=== PATIENT | female | born 2000 | race African-American/Black ===

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

== ENCOUNTER 2019-02-26 20:34 | Emergency (ER) | payer SELFPAY ==
[2019-02-26 20:34] VITALS: BP 103/69; PULSE 70; RESP 16; TEMP 36.9; O2SAT 100; BMI 17.5; BMI 21.7
--- NOTE | 2019-02-26 20:46 | RAD_ITS ---
STUDY: X-RAY - THORACIC SPINE REASON FOR EXAM: Female, 18 years old. Fall TECHNIQUE: 3 view(s) of the thoracic spine were obtained. COMPARISON: None. FINDINGS: Normal kyphosis of the thoracic spine. There is no substantial scoliosis. Normal thoracic vertebrae and endplates. Normal disc space heights. The soft tissue structures are unremarkable. RAD/Thoracic Spine 3 Views IMPRESSION: Normal x-ray examination of the thoracic spine. Electronically Signed: Zaire Quiroz DO at 21:29 EDT Tel [phone], Service support ,
--- NOTE | 2019-02-26 20:47 | ED.VIS.GEN ---
History of Present Illness Chief Complaint: Back Informant: Patient Onset: Yesterday Context: Sudden Onset Timing: Continuous Quality: Pain Location: Lower lumbar central Current Severity: Mild Maximum Severity: Moderate Worsened by: Movement or palpation Relieved by: nothing Associated Symptoms: No associated symptoms Narrative: Patient is a 18-year-old male who states he was dancing the garage. Fell. Door fell on him. Edge hit central portion of his back. He has area of swelling and complains of pain with movement of any type. He denies paresthesia, anesthesia motors lower extremity. He denies bowel bladder dysfunction. He denies saddle paresthesia or anesthesia. He denies quadricep weakness going up or down steps. He denies foot drop. He is on no medication. He has no allergies. He states he has not done anything for the pain. - Past Medical History (1) No significant past medical history Status: Acute Past Medical History - Allergies and Home Meds Allergies/Adverse Reactions: Allergies milk Allergy (Verified 02/26/19 20:35) Hives Primary Care Physician: Sj Mascorro MD [Primary Care Provider] - Past Medical History: None Surgical History: no surgical history Lives: With Family Smoking Status: Current every day smoker Alcohol: None Review of Systems General: Denies: Chills, Fever, Malaise, Sweats Gastrointestinal: Denies: Nausea, Vomiting Genitourinary: Denies: Dysuria, Hematuria, Frequency Musculoskeletal: Reports: Back pain. Denies: Myalgias, Arthralgias, Neck pain, Swelling, Extremity Pain, -, - Skin: Reports: Abrasions. Denies: Rash, Abscess, Wounds Neurological: Denies: Weakness, Parasthesia, Numbness Hematologic: Denies: Easy bruising, Easy bleeding Physical Exam Vital Signs/Narrative: Vital Signs Temp Pulse Resp BP Pulse Ox 02/26/19 20:34 98.5 F 70 16 103/69 100 Inital Vital Signs reviewed: Yes General: Well nourished, Well developed, No Acute Distress Head: Normocephalic, Atraumatic Eyes: Perrl, EOMI Abdomen: Soft, Nontender, Nondistended, Normal bowel sounds Back: Spinal tenderness - There is pain to palpation centrally over the spinous process of T10/T11. There is evidence of trauma.. Negative for: Nontender, Normal Inspection, CVA tenderness Extremities: Nontender, No edema Skin: Normal color, No rash, Trauma Neurological: Alert, Oriented x3, Cranial nerves II-XII grossly intact, Normal Strength, Normal Sensation, Normal DTR, Normal Gait Psychological: Normal affect, Normal Mood Diagnostic/Tx/Re-eval Chest X-Ray - ED: 2 View, Read by ED Physician 2 view x-ray of the dorsal spine reveals no evidence of fracture. - Medical Decision Making Since there is point tenderness x-ray was obtained to evaluate for spinous process fracture. Differential is contusion versus fracture. Symptomatic treatment rest, ice and anti-inflammatory since there is no contraindication ED Disposition - Plan for ED Patient: Disposition: Home or Assisted Living Diagnosis: Contusion of left back wall of thorax, initial encounter Instructions: ED Contusion Back Referrals: Sj Mascorro MD [Primary Care Provider] - 10-14 Days if not better Additional Instructions: Apply ice 20-30 minutes per application 6-8 times a day. Take 3 Advil every 6-8 hours for pain for the next 3-5 days.
[2019-02-26 20:48] VITALS: RESP 16
[2019-02-26 21:33] VITALS: RESP 16
== END 2019-02-26 21:33 | disposition home or self-care (01) ==
PROVIDERS: Emergency Provider Emergency Medicine; Family Provider Pediatrics; PCP Pediatrics
DX: S20.222A Contusion of left back wall of thorax, initial encounter (principal); W20.8XXA Other cause of strike by thrown, projected or falling object, initial encounter; Y93.9 Activity, unspecified; Y92.59 Other trade areas as the place of occurrence of the external cause; Y99.9 Unspecified external cause status; F17.200 Nicotine dependence, unspecified, uncomplicated
CPT/HCPCS: 72072; 99282

== ENCOUNTER 2019-03-08 17:28 | Emergency (ER) | payer SELFPAY ==
[2019-02-26 20:34] VITALS: BMI 21.7
[2019-03-08 17:30] VITALS: BP 109/63; PULSE 80; RESP 16; TEMP 36.3; O2SAT 98; BMI 19.8
--- NOTE | 2019-03-08 17:54 | RAD_ITS ---
STUDY: X-RAY - RIGHT HAND REASON FOR EXAM: Female, 18 years old. Trauma TECHNIQUE: 3 view(s) of the hand. COMPARISON: None. FINDINGS: There is no evidence of fracture or dislocation. There are no significant degenerative changes. There are no radiodense foreign bodies. RAD/Hand Min 3 Views IMPRESSION: No fracture or dislocation. Electronically Signed: Sy Hernandez, at 18:12 EDT Tel , Service support ,
--- NOTE | 2019-03-08 17:57 | ED.DCSUM_ITS ---
- ER Visit Summary Date of Service: 03/08/19 Chief Complaint: Right hand injury History of Present Illness: The patient is a 18 F who presents with right hand injury that occurred last night. Patient states she punched a refrigerator last night because someone made her angry. Patient states the pain and swelling over the right third MCP joint has gotten worse today. Patient states the pain is worse with movement. Patient denies any paresthesias or weakness. Patient denies any other injuries. Physical Examination: Vital signs are stable. Patient is afebrile. Patient has no acute distress. Oral mucosa is pink and moist. Neck is supple. Trachea is midline. There is no JVD noted. Musculoskeletal exam reveals tenderness over the right third MCP joint. There is a small superficial abrasion noted. There is no active bleeding noted. There is no bony crepitance or step-off noted. There is no deformity noted. Range of motion of the right third MCP joint was limited secondary to pain. Sensation was intact to light touch in all digits. Capillary refill was less than 2 seconds in all digits. Test Results: X-rays of the right hand were obtained. There is no acute fracture. This was interpreted by the radiologist and reviewed by myself. Emergency Department Course and Treatment: The patient was given an ice pack. Patient was informed of her x-ray results. Patient was instructed to ice and e levate the right hand. Patient was instructed to follow-up with her primary care physician in 5 to 7 days. Patient was instructed to take Tylenol or ibuprofen as needed for pain. Patient understood and was agreeable with the plan. All questions were answered. Disposition: Discharge home Impression: Right hand contusion This note was generated with [employer] dictation software. It may contain incorrect words, spelling, and punctuation that were not noted in review of the chart prior to signing ED Disposition - Plan for ED Patient: Disposition: Home or Assisted Living Diagnosis: Contusion of right hand, initial encounter Instructions: ED Contusion Upper Ext Referrals: Sj Mascorro MD [STAFF PHYSICIAN] - 5-7 Days
== END 2019-03-08 19:54 | disposition home or self-care (01) ==
PROVIDERS: Emergency Provider Emergency Medicine
DX: S60.221A Contusion of right hand, initial encounter (principal); W22.8XXA Striking against or struck by other objects, initial encounter; Y93.9 Activity, unspecified; Y92.89 Other specified places as the place of occurrence of the external cause; Y99.9 Unspecified external cause status
CPT/HCPCS: 73130; 99282

== ENCOUNTER 2019-07-25 15:35 | Emergency (ER) | payer SELFPAY ==
[2019-07-25 15:37] VITALS: BP 113/79; PULSE 77; RESP 18; TEMP 36.7; O2SAT 100; BMI 21.2
--- NOTE | 2019-07-25 16:00 | ED.DCSUM_ITS ---
- ER Visit Summary Date of Service: 07/25/19 Chief Complaint: Possible overdose History of Present Illness: The patient is a 18 F who overdosed on some medications today. She took 5 tablets of Advil PM and 2 tablets of Xanax. She states that she is stressed out and trying to sleep. Her and her partner are homeless and this caused a stressful home situation. She states she has not slept in a few days. She denies this being an attempt to hurt herself. She does feel a bit drowsy. She denies nausea or vomiting. She denies any other symptoms. Physical Examination: Vital signs reviewed. HEENT exam unremarkable. Heart is regular rate and rhythm without murmurs. Lungs are clear to auscultation. Abdomen is soft and nontender. Extremities reveal no edema. Skin exam normal. Neurologic exam normal. Test Results: Laboratory studies unremarkable except for a creatinine 1.33 Emergency Department Course and Treatment: The patient was unable to give a urine specimen. While waiting for this, the patient's mother came to the emergency department. The patient did not want her here. There was an argument that ensued and the patient eloped from the emergency department Treatment Plan: [] Disposition: Elopement Impression: Medication overdose This note was generated with [employer] dictation software. It may contain incorrect words, spelling, and punctuation that were not noted in review of the chart prior to signing ED Disposition - Plan for ED Patient: Disposition: Against Medical Advice Referrals: Care Physician,No Primary [Primary Care Provider] -
[2019-07-25 16:29] LABS: Absolute Lymphocyte Count 1.35 X10^3/uL (0.83-4.51); Absolute Neutrophil Count 2.1 X10^3/uL (2.0-7.7); Basophil# 0.04 X10^3/uL; Eosinophil# 0.26 X10^3/uL; Eosinophils% 6.3 % (0-5); Hematocrit 40.6 % (37-47); Hemoglobin 14.2 g/dL (12.0-15.0); Lymphocyte # 1.35 X10^3/ul (4.0); Lymphocyte % 32.8 % (19-41); Mean Corpuscular Hgb 32.6 pg (27.0-32.0); Mean Corpuscular Volume 93.1 fL (81-99); Mean Platelet Vol. 9.9 fl (6.2-12.0); Monocyte# 0.36 X10^3/uL; Monocyte% 8.7 % (0-10); NRBC Flagged by Analyzer 0 % (0-5); Platelet Count 196 K/mm3 (150-450); RBC Distribution Width CV 11.3 % (11.6-14.6); RBC Distribution Width SD 38.9 fl (35.1-43.9); Red Blood Count 4.36 M/mm3 (4.2-5.4); White Blood Count 4.1 K/mm3 (4.4-11.0)
--- NOTE | 2019-07-25 16:40 | CM.ED ---
SOCIAL WORK ASSESSMENT INFORMANT: DR. HAN REASON FOR REFERRAL: MENTAL HEALTH-POSSIBLE OVERDOSE LIVING SITUATION: PATIENT STATES LIVING WITH GIRLFRIEND. SUPPORTS: GIRLFRIEND, MARCELA ROMEO. PATIENT STATES FAMILY HAS NOT BEEN SUPPORTIVE SINCE COMING HOME FROM [place] AFTER RECEIVING A FULL RIDE SCHOLARSHIP FOR BASKETBALL. 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 PATIENT REPORTS NOT CURRENTLY WORKING. INSURANCE: SELF PAY. PATIENT GIVEN INFORMATION ON MEDICAID. PATIENT GOING TO FOLLOW UP TOMORROW WITH [facility] [place] TO GET BACK ON MEDICAID. NUMBER PROVIDED. PCP: PATIENT CURRENTLY DOES NOT HAVE A PRIMARY CARE PHYSICIAN. INFORMATION GIVEN ON FREE CLINIC. LIST OF PRIMARY CARE PHYSICIANS GIVEN FOR ONCE MEDICAID APPROVED. MENTAL HEALTH HX: PATIENT ADMITS TO HX OF DEPRESSION. PATIENT ALSO REPORTS HAS ANGER ISSUES, I GET MAD AND I DON'T KNOW WHY. PATIENT STATES IS NOT PRESCRIBED MEDICATION AND THE XANAX THAT SHE TOOK THIS DAY WAS BOUGHT OFF THE STREET. SUBSTANCE ABUSE HX: PATIENT REPORTS IS A DAILY DRINKER. PATIENT STATES ANYWHERE FROM 6-7 BEERS/DAY. PATIENT ADMITS TO MARIJUANA USE. ASSESSMENT: MET WITH PATIENT IN ROOM. GIRLFRIEND PRESENT AND PATIENT GAVE PERMISSION FOR THIS WORKER TO SPEAK OPENLY WITH GIRLFRIEND PRESENT. INTRODUCED THIS WORKER'S ROLE AND REASON FOR REFERRAL. PATIENT STATES TOOK 5 ADVIL PM'S AND 2 XANAX TO GET SOME SLEEP. PATIENT STATES MANY SOCIAL STRESSORS AND HAS BEEN HAVING A HARD TIME SLEEPING. PATIENT DENIES ANY SUICIDAL OR HOMICIDAL IDEATION. PATIENT REPORTS DOES NOT CURRENTLY FOLLOW WITH ANY COUNSELING AGENCIES AND FEELS WOULD BENEFIT FROM ESTABLISHING WITH ONE. PATIENT ADMITS TO SUBSTANCE ABUSE, ALCOHOL AND MARIJUANA. DISCUSSED SETTING UP CRISIS FOLLOW UP APPOINTMENT FROM ED VISIT. PATIENT IN AGREEMENT WITH PLAN. DISCUSSED APPLYING FOR MEDICAID AND PATIENT PROVIDED WITH NUMBER AND ENCOURAGED TO CALL TOMORROW. CALL TO THE COUNSELING CENTER AND SET UP APPOINTMENT FOR TOMORROW FOR 1P WITH [facility]. PATIENT UPDATED. PLAN: HOME WITH FOLLOW UP WITH THE COUNSELING CENTER TOMORROW, 07/26/19. JACQUES GRAVES, ASSISTANT CHIEF OF POLICE, [employer]
[2019-07-25 16:42] LABS: Anion Gap 5 (5-15); BUN 18 mg/dL (7-18); BUN/Creat Ratio 13.5 RATIO (10-20); Calcium,Total 9.4 mg/dL (8.5-10.1); Chloride 108 mmol/L (98-107); Creatinine, Serum 1.33 mg/dL (0.55-1.02); EST Glomerular Filtration Rate 54 mL/min (>60); Est Glom Filt Rate - Afr Amer 65 mL/min (>60); Glucose 77 mg/dL (74-106); Potassium 3.8 mmol/L (3.5-5.1); Sodium Level 138 mmol/L (136-145)
[2019-07-25 17:05] LABS: Internal QC Validated? YES +Cl - CLEAR BKGD; Pregnancy, Serum, hCG Quali. NEGATIVE Negative
--- NOTE | 2019-07-25 17:29 | ED.RN ---
pt mom at bedside. pt mother upset and pt removing hall monitor. girlfriend removed from the room. pt mom arguing, shut the door on this rn and saying this conversation is done. Pt mother wants to know what is happening with the patient. RN asked permission from pt to discuss why the patient came in. pt said yes. Mom vocalizing anger the rn asked pt permission with the mom being the mom and racism is occurring. Rn explained patient took more medication than needed and was here being monitored. Mom response was what am I here for? I birthed her. She is my child. Pt wanting to leave and mom wanting her to leave. Rn discussed with patient that she would go talk to physician and have her sign AMA paperwork at this time. Mom calmed down and waited for the provider to get AMA paperwork. pt left AMA at this time [id number]
[2019-07-25 17:40] LABS: Acetaminophen (Tylenol) Level < 2.0 ug/mL (10.0-30.0); Salicylate 2.6 mg/dL (2.8-20.0)
--- NOTE | 2019-07-25 18:38 | ED.RN ---
NOTE DOCUMENTED BY JOHN GALLEGOS WAS ENTERED INCORRECTLY. LIZZIE SOLORZANO RN WROTE THE NOTE AND HAD THE ENCOUNTER WITH THE PATIENT AND THE MOTHER.
--- NOTE | 2019-07-25 18:39 | ED.RN ---
1700 PT REFUSED TO BE STRAIGHT CATH FOR URINE AND UNABLE TO VOID IN CUPX2 TIMES.
== END 2019-07-25 17:33 | disposition left against medical advice (07) ==
LOC: ED 16:36
PROVIDERS: Emergency Provider Emergency Medicine
DX: T39.312A Poisoning by propionic acid derivatives, intentional self-harm, initial encounter (principal); T42.4X2A Poisoning by benzodiazepines, intentional self-harm, initial encounter; Y92.9 Unspecified place or not applicable; Z59.0 Homelessness; Z72.0 Tobacco use
CPT/HCPCS: 80048; 80320; 80329; 84703; 85025; 99283; G0480

== ENCOUNTER 2019-10-22 14:12 | Emergency (ER) | payer MEDICAID, SELFPAY ==
[2019-10-22 14:14] VITALS: BP 128/88; PULSE 72; RESP 18; TEMP 36.4; O2SAT 100; BMI 20.7
--- NOTE | 2019-10-22 14:54 | ED.VIS.GEN ---
History of Present Illness Chief Complaint: Abd Pain Informant: Patient Onset: Days Context: Gradual Onset Narrative: Patient is a 19-year-old female that over the last few days has noticed a bump just above her bellybutton. She notes she is to have a more prominent outie. She googled the symptoms and is concerned that she has a hernia and that she could from it. She came to the emergency room for further evaluation of this. Patient denies any symptoms such as abdominal pain, nausea, vomiting or abnormal bowel movements. She denies any urinary symptoms. She denies any other complaints at this time. She does she currently does not have insurance or primary care doctor. Past Medical History - Allergies and Home Meds Allergies/Adverse Reactions: Allergies milk Allergy (Verified 10/22/19 14:13) Daryn Primary Care Physician: Care Physician,No Primary [Primary Care Provider] - Past Medical History: None Surgical History: no surgical history Smoking Status: Current every day smoker Review of Systems General: Denies: Chills, Fever, Sweats Eyes: Denies: Visual changes - bilaterally, Diplopia ENT: Denies: Rhinorrhea, Sore throat Cardiovascular: Denies: Chest pain, Palpitations Respiratory: Denies: Dyspnea, Cough, Dyspnea on exertion Gastrointestinal: Reports: - - Bump at umbilicus. Denies: Abdominal pain, Nausea, Vomiting, Diarrhea, Melena, Hematochezia Genitourinary: Denies: Dysuria, Hematuria, Frequency Musculoskeletal: Denies: Back pain, Extremity Pain Skin: Denies: Rash, Wounds Neurological: Denies: Headache, Weakness, Numbness Physical Exam Vital Signs/Narrative: Vital Signs Temp Pulse Resp BP Pulse Ox 10/22/19 14:14 97.5 F L 72 18 128/88 H 100 Inital Vital Signs reviewed: Yes General: Well nourished, Well developed, No Acute Distress Head: Normocephalic, Atraumatic Eyes: Perrl, EOMI ENT: Moist mucous membranes, No rhinorrhea Neck: Supple, Nontender Cardiovascular: Regular rate, Regular rhythm, No murmurs Respiratory: No distress, CTA bilaterally, Chest nontender Abdomen: Soft, Nontender, Nondistended, Normal bowel sounds, Umbilical hernia - Small 1 cm umbilical hernia that is soft, easily reducible with no overlying erythema Back: Nontender, Normal Inspection Extremities: Nontender, No edema Skin: Normal color, No rash Neurological: Alert, Oriented x3, Cranial nerves II-XII grossly intact, Normal Strength, Normal Sensation Psychological: Normal affect, Normal Mood Diagnostic/Tx/Re-eval - Medical Decision Making Patient has a small reducible umbilical hernia. She does notes that a few days ago. She does not have signs of incarceration or strangulation. She is otherwise well-appearing. She is planning on calling to set up insurance and then get a primary care doctor for this. She is encouraged to do this. She is counseled on signs and symptoms of a strangulated hernia and reasons to return to the emergency room. She is counseled on general cardiac care. Patient is counseled on signs and symptoms requiring return to the emergency room. Patient verbalizes agreement and understand this plan. Patient discharged home in stable and improved condition. ED Disposition - Plan for ED Patient: Diagnosis: Umbilical hernia Instructions: HERNIA (Inguinal, Ventral, Umbilical) Referrals: Iliana Chahal [NON-STAFF] - Additional Instructions: Return the emergency room if you have worsening symptoms such as significant abdominal pain, inability to have a bowel movement or firmness at the umbilical site. Otherwise follow-up with a primary care doctor. You have a small umbilical hernia which should not cause any complications.
[2019-10-22 15:11] VITALS: PULSE 78; RESP 15; RESP 16; O2SAT 98
== END 2019-10-22 15:13 | disposition home or self-care (01) ==
PROVIDERS: Emergency Provider Emergency Medicine
DX: K42.9 Umbilical hernia without obstruction or gangrene (principal); F17.200 Nicotine dependence, unspecified, uncomplicated
CPT/HCPCS: 99282

== ENCOUNTER 2019-11-25 13:43 | Emergency (ER) | payer MEDICAID, SELFPAY ==
[2019-11-25 13:43] VITALS: BP 99/54; PULSE 69; RESP 16; TEMP 36.9
[2019-11-25 13:44] VITALS: BP 99/54; PULSE 69; RESP 16; TEMP 36.9; BMI 21.1
--- NOTE | 2019-11-25 16:54 | ED.VIS.DENTA ---
History of Present Illness Chief Complaint: Headache Informant: Patient Onset: Weeks - 3 Context: Gradual Onset Timing: Intermittent Quality: ache/throbbing Location: bifrontal Current Severity: Gone Maximum Severity: Severe Worsened by: toothache. nighttime. Relieved by: NSAIDs Narrative: Patient has a history of migraines. She has had a right mandibular tooth ache for the past 3 weeks that seems to be triggering migraines off and on. They are treatable but recurrent. She does not have a headache now. She is trying to make an appointment with a dentist but has not been able to get seen for this and now is having worsening pain and concerned about an infection developing. She denies having any swelling or trouble swallowing. - Past Medical History (1) Migraines Status: Chronic Past Medical History - Allergies and Home Meds Allergies/Adverse Reactions: Allergies milk Allergy (Verified 10/22/19 14:13) Hives Primary Care Physician: Care Physician,No Primary [Primary Care Provider] - Surgical History: no surgical history Lives: Roommate Smoking Status: Current every day smoker Review of Systems General: Denies: Chills, Fever, Sweats Eyes: Denies: Visual changes - bilaterally, Diplopia ENT: Reports: - - Right mandibular dental pain. Denies: Bilateral ear pain, Rhinorrhea, Sore throat Gastrointestinal: Denies: Abdominal pain, Nausea, Vomiting, Diarrhea Skin: Denies: Rash, Wounds Neurological: Reports: Headache - Gone now. Denies: Weakness, Numbness Physical Exam Vital Signs/Narrative: Vital Signs Temp Pulse Resp BP 11/25/19 13:44 98.5 F 69 16 99/54 L 11/25/19 13:43 98.5 F 69 16 99/54 L Inital Vital Signs reviewed: Yes General: Well nourished, Well developed, - - Well-appearing, no distress Head: Normocephalic, Atraumatic ENT: Moist mucous membranes, No rhinorrhea Mouth/Throat: Normal inspection lips/gums, Normal oral mucosa, Focal dental decay - Tooth #31. Negative for: Dental abscess Neck: Supple, No lymphadenopathy, Nontender Neurological: Alert, Oriented x3, Cranial nerves II-XII grossly intact, Normal Strength, Normal Sensation, Normal Gait Psychological: Normal affect, Normal Mood Diagnostic/Tx/Re-eval - Medical Decision Making We will place the patient on amoxicillin due to worsening pain and possible early dental infection. No abscess to drain. Given dental resource list. ED Disposition - Plan for ED Patient: Disposition: Home or Assisted Living Diagnosis: Odontalgia, Dental caries, Recurrent headache Instructions: Dental Cavity Prescriptions: Amoxicillin 500 mg PO TID #30 tab Transmission Status: Pending to [facility]30 Referrals: Dentist,Your [STAFF PHYSICIAN] - As soon as possible
== END 2019-11-25 17:25 | disposition home or self-care (01) ==
PROVIDERS: Emergency Provider Emergency Medicine
DX: K02.9 Dental caries, unspecified (principal); F17.200 Nicotine dependence, unspecified, uncomplicated; G43.909 Migraine, unspecified, not intractable, without status migrainosus
CPT/HCPCS: 99283

== ENCOUNTER 2020-07-20 10:29 | Emergency (ER) | payer MEDICAID, SELFPAY ==
[2020-07-20 10:30] VITALS: BP 122/80; PULSE 56; RESP 16; RESP 17; TEMP 36.6; O2SAT 100; BMI 21.5
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
[2020-07-20] MEDS: Naproxen 250 MG Tablet 500 MG PO (11:24)
[2020-07-20] MEDS: Metoclopramide 10 MG Tablet PO (11:24)
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
== END 2020-07-20 13:16 | disposition home or self-care (01) ==
PROVIDERS: Emergency Provider Emergency Medicine
DX: S06.0X0A Concussion without loss of consciousness, initial encounter (principal); W22.8XXA Striking against or struck by other objects, initial encounter; Y93.9 Activity, unspecified; Y92.89 Other specified places as the place of occurrence of the external cause; Y99.9 Unspecified external cause status; F17.200 Nicotine dependence, unspecified, uncomplicated
CPT/HCPCS: 70450; 99283

== ENCOUNTER 2020-11-19 01:03 | Emergency (ER) | payer MEDICAID, SELFPAY ==
[2020-11-19 01:04] VITALS: BP 123/80; PULSE 92; RESP 16; TEMP 37.1; O2SAT 100; BMI 21.4
--- NOTE | 2020-11-19 01:21 | ED.DCSUM_ITS ---
History of Present Illness Chief Complaint: Dental Informant: Patient Narrative: 20-year-old female states that approximately 2 to 3 weeks ago she chipped a tooth on the right upper side. She states it started hurting over the past couple days progressively gotten worse. She reports that she has not made a dentist appointment. She denies any fevers. - Past Medical History (1) Migraines Status: Chronic Past Medical History - Allergies and Home Meds Allergies/Adverse Reactions: Allergies milk Allergy (Verified 11/19/20 01:04) Hives Surgical History: no surgical history Smoking Status: Current every day smoker Drugs: None Review of Systems General: Denies: Chills, Fever, Sweats Eyes: Denies: Visual changes - bilaterally, Diplopia ENT: Reports: - - dental pain. Denies: Rhinorrhea, Sore throat Cardiovascular: Denies: Chest pain, Palpitations Respiratory: Denies: Dyspnea, Cough, Dyspnea on exertion Gastrointestinal: Denies: Abdominal pain, Nausea, Vomiting, Diarrhea, Melena, Hematochezia Genitourinary: Denies: Dysuria, Hematuria, Frequency Musculoskeletal: Denies: Back pain, Extremity Pain Skin: Denies: Rash, Wounds Neurological: Denies: Headache, Weakness, Numbness Physical Exam Vital Signs/Narrative: Vital Signs Temp Pulse Resp BP Pulse Ox 11/19/20 01:04 98.8 F 92 16 123/80 H 100 Inital Vital Signs reviewed: Yes General: Well nourished, Well developed, No Acute Distress Head: Normocephalic, Atraumatic Eyes: Perrl, EOMI ENT: Moist mucous membranes, No rhinorrhea, - - No facial swelling or erythema. No trismus. Floor the mouth is soft. Right upper premolar shows severe decay down to the gumline. No drainable abscess noted Neck: Supple, Nontender Cardiovascular: Regular rate, Regular rhythm, No murmurs Respiratory: No distress, CTA bilaterally, Chest nontender Abdomen: Soft, Nontender, Nondistended, Normal bowel sounds Back: Nontender, Normal Inspection Extremities: Nontender, No edema Skin: Normal color, No rash Neurological: Alert, Oriented x3, Cranial nerves II-XII grossly intact, Normal Strength, Normal Sensation Psychological: Normal affect, Normal Mood Diagnostic/Tx/Re-eval - Medical Decision Making Be given a shot of Toradol for pain. Be placed on penicillin. She needs to make a dentist appointment as soon as possible. ED Disposition - Plan for ED Patient: Disposition: Home or Assisted Living Diagnosis: Dental decay, Periapical abscess Instructions: ED Dental Abscess Prescriptions: Hydrocodone Bitart/Apap 5-325 [[place] 5MG-325MG] 1 tab PO Q6H PRN PRN 3 Days #10 tab PRN Reason: Pain Prescription Printed Penicillin V Potassium 500 mg PO 4X/DAY #40 tab Prescription Printed Additional Instructions: Please make a appointment with a dentist of your choice as soon as possible Please see dental referral list they were given.
[2020-11-19] MEDS: Penicillin Vk 250 MG Tablet 500 MG PO (01:30)
[2020-11-19] MEDS: Ketorolac 60 MG/2 ML Vial IM (01:30)
[2020-11-19 01:52] VITALS: BP 109/66; PULSE 72; RESP 16
== END 2020-11-19 01:53 | disposition home or self-care (01) ==
LOC: ED 01:30
PROVIDERS: Emergency Provider Emergency Medicine
DX: K04.7 Periapical abscess without sinus (principal); K02.9 Dental caries, unspecified; F17.200 Nicotine dependence, unspecified, uncomplicated; G43.909 Migraine, unspecified, not intractable, without status migrainosus
CPT/HCPCS: 96372; 99283

== ENCOUNTER 2021-07-19 21:41 | Emergency (ER) | payer MEDICAID, SELFPAY ==
[2021-07-19 21:42] VITALS: BP 106/82; PULSE 95; RESP 16; TEMP 37.1; O2SAT 98; BMI 20.3
--- NOTE | 2021-07-19 23:40 | RAD_ITS ---
HISTORY: Pain after blunt trauma EXAMINATION/TECHNIQUE: XR Clavicle Unilateral: COMPARISON: None FINDINGS: BONES/JOINTS: No acute fracture or dislocation. Preservation of the joint spaces. SOFT TISSUES: No soft tissue swelling or gas. No radiopaque foreign body. RAD/Clavicle IMPRESSION: No acute bony abnormality. at 0015 Reported and signed by: El Rodriguez MD Electronically Signed: El Rodriguez MD at 0:14 EDT Tel , Service support ,
--- NOTE | 2021-07-19 23:51 | EDS_ITS ---
HPI History of Present Illness Chief Complaint: Upper Extremity Injury Informant: patient and friend Occured/Mechanism Mechanism/Context: Yes blunt trauma and Yes same level fall Onset/Context/Timing Onset: Hours (5.5 hours prior to presentation) Context: Sudden Onset Timing: Continuous Quality of Pain: Dull and Aching Location: Posterior right shoulder, clavicle and patient states she feels something i Current Severity: Mild Maximum Severity: Moderate Worsened by: Use of right upper extremity Relieved by: Rest Associated Symptoms Associated Symptoms: Negative for Parasthesia, Weakness and Loss of Funtion Narrative Narrative: Patient is a 20-year-old [id number] woman who was lifting an object and fell backwards. She has an abrasion in the proximity of the AC joint. She denies head trauma. She does report neck pain. She denies loss of conscious. She not amnestic. She denies ringing in ears or decreased hearing. She denies epistaxis. She denies difficulty opening closing her mouth. She has not taken anything for the pain. She denies history of ulcer, diabetes, hypertension or renal disease. Tetanus Immunization: 5-10 years Prior similar symptoms: No Recent Illness/Hospitalization: No PFSH PFSH Home Medications NK 07/19/21 [History Last Taken Unknown] hydrocodone-acetaminophen 1 tab PO Q6H PRN PRN 3 Days #10 tablet 07/19/21 [Rx Last Taken Unknown] Allergy/AdvReac Type Severity Reaction Status Date / Time milk Allergy Hives Verified 07/19/21 21:42 no surgical history Social History (Updated 07/19/21 @ 23:[address] Darshan Harp MD) household members: friend(s) Smoking Status: Current every day smoker tobacco type: cigarettes substance use type: does not use ROS ROS ED Constitutional Constitutional ED: Denies frequent falls Eyes Eyes: Denies blurry vision, change in vision or diplopia ENT ENT ED: Denies ear pain, rhinorrhea or sore throat Cardiovascular Cardiovascular: Denies chest pain or palpitations Respiratory/Chest Respiratory/Chest: Denies cough, dyspnea or dyspnea on exertion Gastrointestinal Gastrointestinal: Denies nausea or vomiting Musculoskeletal Musculoskeletal: Reports neck pain; Denies back pain or myalgias Integumentary Reports Abrasions; Denies abscess or rash Neurologic Neurologic: Denies headache(s), paresthesias or weakness Hematologic/Lymphatic Hematologic/Lymphatic: Denies easy bleeding or easy bruising EXAM Physical Exam Const Vital Signs: 07/19/21 21:42 Temperature 98.7 F Temperature Source Temporal Pulse Rate 95 Respiratory Rate 16 Blood Pressure 106/82 H Blood Pressure Mean 90 Pulse Ox 98 Oxygen Delivery Method Room Air Positive well nourished and well developed General Appearance ED: well developed and NAD HEENT Reports moist mucous membranes HEENT Narrative: There is no clinical findings of basal skull fracture. There is no septal deviation hematoma. normocephalic and atraumatic Eyes PERRL and EOMs intact bilaterally Eyes Narrative: There is no subconjunctival hemorrhage. Neck full ROM and supple Neck Narrative: There is pain the patient over the right sternocleidomastoid muscle. General: Negative for tenderness Chest Wall inspection of chest normal Resp normal respiratory effort and clear to auscultation bilaterally Cardio regular rate, regular rhythm, S1 normal heart sound, S2 normal heart sound and n o murmurs Back/Spine no CVA tenderness Extremity Negative for normal to inspection or full ROM Extremity Narrative: Abrasion posterior aspect of the right shoulder in the proximity of the AC joint. This pain ovation over the AC joint. There is no laxity noted. There is pain ovation of the clavicle. There is no pain ovation over the proximal humerus. She is able to AB duct. She has discomfort once she abduction to 60 degrees. Axillary, median, radial and ulnar function intact. R adial pulses palpable. There is no pain the patient over the lateral medial epicondyles has no pain to palpation over the left thumb process or radial head. She has no pain the patient over the wrist. General Extremety ED: Negative for edema General Extremity: Negative for edema Neuro oriented x3, CN's II-XII intact bilaterally, no focal motor deficits and no sensory deficits noted Sensorium / Orientation: alert Psych mental status grossly normal Skin Lesions: no lesions Rashes: no rashes Trauma: no lacerations or abrasions and abrasion MDM MDM MDM Narrative Medical decision making narrative: Because there is pain the patient with AC joint and the mid third of the clavicle x-ray of the clavicle was obtained. X- ray of the clavicle feels no fracture. There is no widening of the AC joint. Will treat as a first-degree shoulder separation. 2 views of the clavicle was obtained and interpreted by me at 2350 Discharge Plan Triage Chief Complaint: Upper Extremity Injury ED Provider: Darshan Harp Dx/Rx/DC Orders Clinical Impression: Acromioclavicular joint separation, type 1 Instructions: ED Sprain AC Joint Prescriptions: New hydrocodone-acetaminophen [hydrocodone-acetaminophen] 1 TABLET tablet 1 tab PO Q6H PRN PRN (Reason: Pain) 3 Days Qty: 10 RF: 0 No Action NK RF: 0 Primary Care Provider: Care Physician,No Primary Referrals: Matias Hernandez DO [STAFF PHYSICIAN] - 5-7 Days Care Physician,No Primary [Primary Care Provider] - Activity Restrictions/Additional Instructions: 1. Apply ice 6-8 times a day 2. Remove arm from sling to perform pendulum's exercises starting tomorrow. Disposition Disposition: Home, Self Care
[2021-07-19] MEDS: Naproxen 375 MG Tablet PO (23:58)
[2021-07-19] MEDS: HYDROcodone Bitartrate/Apap 5/325 Tablet PO (23:59)
[2021-07-20 01:12] VITALS: BP 113/83; PULSE 76; RESP 16; O2SAT 100
== END 2021-07-20 01:15 | disposition home or self-care (01) ==
LOC: ED 07-20 00:08
PROVIDERS: Emergency Provider Emergency Medicine
DX: S43.101A Unspecified dislocation of right acromioclavicular joint, initial encounter (principal); W18.30XA Fall on same level, unspecified, initial encounter; Y93.9 Activity, unspecified; Y92.89 Other specified places as the place of occurrence of the external cause; Y99.8 Other external cause status; F17.210 Nicotine dependence, cigarettes, uncomplicated
CPT/HCPCS: 73000; 99284

== ENCOUNTER 2022-03-27 04:30 | Emergency (ER) | payer MEDICAID, SELFPAY ==
[2022-03-27 04:31] VITALS: BP 117/89; PULSE 86; RESP 20; TEMP 36.5; O2SAT 100; BMI 18.8
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
[2022-03-27] MEDS: Diphth,Pertuss(Acell),Tet Vac 0.5 ML Vial IM (04:56)
[2022-03-27] MEDS: Lidocaine 1% (20 ml mdv) 20 ML Vial INFILT (04:56)
[2022-03-27 05:57] VITALS: TEMP -8.8; TEMP 16
[2022-03-27 06:30] VITALS: RESP 15
== END 2022-03-27 06:31 | disposition home or self-care (01) ==
PROVIDERS: Emergency Provider Emergency Medicine; Visit Provider Emergency Medicine
DX: S61.210A Laceration without foreign body of right index finger without damage to nail, initial encounter (principal); F17.210 Nicotine dependence, cigarettes, uncomplicated; Z23 Encounter for immunization; S61.214A Laceration without foreign body of right ring finger without damage to nail, initial encounter; S61.212A Laceration without foreign body of right middle finger without damage to nail, initial encounter; W18.02XA Striking against glass with subsequent fall, initial encounter
CPT/HCPCS: 12002; 73130; 90715; 99283

== ENCOUNTER 2022-04-11 16:35 | Emergency (ER) | payer MEDICAID, SELFPAY ==
[2022-04-11 16:37] VITALS: BP 109/66; PULSE 104; RESP 12; TEMP 36.8; O2SAT 98; BMI 18.8
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
== END 2022-04-11 17:06 | disposition home or self-care (01) ==
PROVIDERS: Emergency Provider Emergency Medicine; Visit Provider Emergency Medicine
DX: Z48.02 Encounter for removal of sutures (principal); S02.5XXA Fracture of tooth (traumatic), initial encounter for closed fracture; F17.210 Nicotine dependence, cigarettes, uncomplicated; X58.XXXA Exposure to other specified factors, initial encounter; Y93.9 Activity, unspecified; Y99.9 Unspecified external cause status; Y92.9 Unspecified place or not applicable
CPT/HCPCS: 99282